=== PATIENT | male | born 1995 | race African-American/Black ===

== ENCOUNTER 2024-07-07 11:45 | Emergency (ER) | payer OTHER, SELFPAY ==
--- NOTE | ~2024-07-07 | CT_ITS ---
EXAMINATION: CT ankle RT wo con DATE: 07/07/2024 13:51 INDICATION: Right ankle injury. TECHNIQUE: Computed tomography (CT) of the right ankle was performed without intravenous contrast. Au tomated exposure control and iterative reconstruction technique were employed. The dose-length produc t was 489.26 mGy-cm. COMPARISON: None FINDINGS: There is normal bone alignment. No fracture. Joint spaces are normal. There is a complete t ear of the Achilles tendon 6 cm proximal to the distal insertion with 3.4 cm gap. IMPRESSION: 1. Complete tear of the Achilles tendon. Reviewed, dictated and finalized at location E.
[2024-07-07 11:47] VITALS: BP 117/72; PULSE 89; RESP 16; TEMP 36.5; O2SAT 97
[2024-07-07 13:55] VITALS: BP 120/81; PULSE 83; RESP 15; TEMP 36.9; O2SAT 100
--- NOTE | 2024-07-07 14:24 | ED.LOWEXIN ---
HPI - Extremity Injury (Lower) General Chief Complaint: Extremity Injury, Lower Stated Complaint: tore my achilles Time Seen by Provider: 07/07/24 14:01 History of Present Illness HPI Narrative: 29-year-old male presents to emergency department with concerns for Achilles tendon injury. Patient states was playing basketball when he was trying to catch a pass and felt a pop the posterior aspect of his right ankle. Denies injury to the remainder of lower extremity. Review of Systems Review of Systems: All systems reviewed & are unremarkable except as noted in HPI and below Exam Narrative: GENERAL: Well-appearing, well-nourished, and in no acute distress. HEAD: Normocephalic, atraumatic. NECK: Supple. CHEST: Clear to auscultation. No respiratory distress. HEART: Regular rate and rhythm. No murmur heard. Normal peripheral pulses. EXTREMITIES: RLE: Tenderness along the Achilles tendon. Obvious deformity palpated along the Achilles tendon. Negative Salas's test. No tenderness remainder lower extremity. DP pulse 2 +. Sensation intact. Limited range of motion of ankle. Compartments are soft SKIN: Warm, dry, no rash. NEURO: No focal deficits. Alert and oriented x3 Course Vital Signs Vital signs: Vital Signs Temperature 97.7 F 07/07/24 11:47 Pulse Rate 89 07/07/24 11:47 Respiratory Rate 16 07/07/24 11:47 Blood Pressure 117/72 07/07/24 11:47 Pulse Oximetry 97 07/07/24 11:47 Temperature 98.4 F 07/07/24 13:55 Pulse Rate 83 07/07/24 13:55 Respiratory Rate 15 07/07/24 13:55 Blood Pressure 120/81 07/07/24 13:55 Pulse Oximetry 100 07/07/24 13:55 MDM - Extremity Injury (Lower) MDM Narrative Medical decision making narrative: 29-year-old male presents to emergency department with concerns for an Achilles tendon injury that occurred prior to arrival play basketball. Triage vitals are stable. Exam is significant for the above. He is neurovascularly intact. Concern for Achilles rupture. CT ankle obtained which shows a complete tear of the Achilles tendon 6 cm proximal to the distal insertion with 3.4 cm gap. Imaging discussed with the patient. He was placed in a short-leg posterior splint with ankle slightly plantar flexed and provided crutches. I offered pain medications, however patient politely declined. Advised Tylenol ibuprofen and close follow-up with orthopedics. Strict ED return precautions provided. He is agreeable to plan verbalized understanding. Discharged in stable condition. Discharge Plan Discharge Clinical Impression: Achilles tendon rupture Qualifiers: Encounter type: initial encounter Laterality: right Qualified Code(s): S86.011A - Strain of right Achilles tendon, initial encounter Patient Disposition: Home, Self-Care Condition: Stable Instructions: Antibiotic Form, Achilles Tendon Rupture (ED) Additional Instructions: your evaluated in the emergency department for ankle pain after an injury while playing basketball. Your exam is concerning for Achilles tendon injury. CT was obtained that shows a full Achilles tendon rupture. Your placed in a splint and provided crutches, please keep the splint on until you follow-up with orthopedics. Please call Dr. Hernandez on Monday for close follow-up. You can take 1000 mg of Tylenol every 6 hours and 800 mg of ibuprofen every 6 hours as needed for pain. Return to the emergency department if you develop a fever, numbness to her foot, cold or numb foot, significantly worsening pain, or other concerning symptoms Follow-up/Referrals: Robert Hernandez MD [Physician] - 1 Day UNKNOWN,DOCTOR [Non-Staff] -
== END 2024-07-07 15:43 | disposition home or self-care (01) ==
PROVIDERS: Emergency Provider Physician Assistant
DX: S86.011A Strain of right Achilles tendon, initial encounter (principal); X50.9XXA Other and unspecified overexertion or strenuous movements or postures, initial encounter; Y93.67 Activity, basketball
CPT/HCPCS: 73700; 99284

== ENCOUNTER 2024-07-11 14:52 | Outpatient (CLI) | payer OTHER, SELFPAY ==
--- NOTE | ~2024-07-11 | MR_ITS ---
EXAMINATION: MR ankle RT wo con DATE: 07/11/2024 15:44 INDICATION: Right Achilles tendon strain or rupture. TECHNIQUE: Magnetic resonance imaging (MRI) of the right ankle was performed without intravenous cont rast. Sequences included sagittal, coronal, and axial proton-density weighted fast spin echo without and with fat saturation. COMPARISON: None. FINDINGS: Medial ankle ligaments: Deep and superficial deltoid ligaments as well as the spring ligament are normal. Lateral ankle ligaments: The anterior and posterior inferior tibiofibular ligaments are normal. The anterior talofibular, calc aneofibular and posterior talofibular ligaments are normal. Tendons: There is severe Achilles tendinosis with full-thickness tear located 6 cm from the calcaneal insertio n and with 3 cm proximal retraction. The plantaris tendon remains intact. The peroneus longus and janak vis tendons are normal. The tibialis anterior and extensor hallucis longus and extensor digitorum piter arben tendons are normal. The tibialis posterior, flexor digitorum longus and flexor hallucis longus te ndons are normal. Plantar fascia: Plantar aponeurosis is normal. Bones/other: Bone alignment is normal. Normal marrow signal throughout no fracture, reactive edema or pathologic m arrow replacing process. Joint spaces are normal. Fluid: Physiologic amount fluid in the joint spaces. Small fluid collection likely hematoma at the Achilles tendon tear defect. There is prominent surrounding subcutaneous edema about the distal calf extending across ankle in the dorsum of the foot. IMPRESSION: 1. Complete tear of the Achilles tendon 6 cm proximal to the calcaneal insertion with 3 cm proximal r etraction. Reviewed, dictated and finalized at location A. IMPRESSION: 1. Complete tear of the Achilles tendon 6 cm proximal to the calcaneal insertio n with 3 cm proximal retraction.
== END 2024-07-11 14:53 ==
LOC: GOSHIMG 14:53
PROVIDERS: PCP Orthopaedic Surgery; Visit Provider Orthopaedic Surgery
DX: S86.011A Strain of right Achilles tendon, initial encounter (principal); X58.XXXA Exposure to other specified factors, initial encounter
CPT/HCPCS: 73721

== ENCOUNTER 2024-07-12 01:40 | Day surgery (SDC) | payer OTHER, SELFPAY ==
--- NOTE | 2024-07-11 10:29 | PC.NURSE ---
Report to the Outpatient Waiting Room, entrance under the green pavilion located off [facility], at time ____10am___ on date ____07/12/24___. Planned Procedure Time: ___12p . Time changes happen often and if your time is changed the preop area will call you the afternoon before. - You and your visitor will be asked to self-screen and do not enter if you have any COVID symptoms. - A mask is optional within the hospital at this time. Patients may have clear liquids (water, carbonated beverages, clear teas, apple juice) until 3 hours prior to surgery with a maximum of 20 ounces. stop at 9am - No food from midnight until time of surgery Take the following medications with a SIP of water the morning of surgery: NA DO NOT STOP ANY OF YOUR OTHER PRESCRIPTION MEDICATIONS PRIOR TO SURGERY ?EXCEPT THE FOLLOWING Medications to discontinue per physician NA Date to take last dose Please no make-up, nail yakut, hairspray, perfume, deodorant, or body powder the day of surgery. No jewelry (including any body piercings) or valuables the day of surgery, leave them at home. Please take a shower or bath the night before, or the morning of, surgery with an antibacterial soap. Wear comfortable, loose fitting clothing. - Jewelry must be removed prior to entering the operating room. Rings and piercings that are not removed may be cut off. - The hospital will not accept responsibility for valuables. - Please leave all valuables, including medications, at home the day of surgery. If you are going home after surgery, a licensed medical van driver must drive you home. - NO public transportation without another adult if you receive anesthesia. - We recommend that an adult stay with you for 24 hours following discharge. - We also recommend that you do not drive, make important decision, drink alcoholic beverages, or take any drugs that were not prescribed by your health care provider for at least 24 hours after your discharge time. Follow any additional instructions given to you from your surgeon. If you or anyone in your household have experienced Covid symptoms in the past week, please notify your surgeon or the nurse liaison at the phone number below for possible testing. Telephone instructions given to __patient __and asked if any additional questions and then verbalized understanding. Patient advised to call surgeon office or pre surgery nurse liaison [phone] if any additional questions.
[2024-07-11 10:37] VITALS: BMI 23.9
[2024-07-12] VITALS (11 sets, daily range): BP systolic 81–129; BP diastolic 44–83; PULSE 62–76; RESP 8–18; TEMP 36.2–36.6; O2SAT 98–100
[2024-07-12] MEDS: LACTATED RINGERS 1,000 ML 30 ML IV CONT ×2 (10:30→14:09)
--- NOTE | 2024-07-12 10:51 | PM.IMHP ---
H&P: HPI History of Present Illness Date/Time: 07/12/24 10:51 Chief Complaint: right Achilles tendon tear Narrative: 29-year-old male who presents today for surgical repair of his right Achilles tendon rupture. He injured it on 07/07. While he was playing basketball he went up for a jump and felt a sudden severe pain in the posterior aspect of the calf. He also felt a pop. He had rather severe pain after this and went to the emergency room. They did a CT scan initially of the right ankle which was suggestive of Achilles tendon rupture. He was seen in the office on 07/08. MRI scan was ordered which showed a complete tear of the a Achilles tendon mid substance. There is about 3.5 cm of gapping. Because of the significant gapping and his young age surgical repair the tendon was recommended. Patient like to proceed and presents today for that. Review of Systems Review of Systems: All systems reviewed & are unremarkable except as noted in HPI and below PMFSH Past Medical History Medical History (Updated 07/09/24 @ 21:07 by Robert Hernandez MD) Collar bone fracture Family History Family History (Updated 07/08/24 @ 11:34 by KELSEY Souza) Father No problems noted. Mother No problems noted. Sibling No problems noted. Social History Social History (Updated 07/08/24 @ 11:35 by KELSEY Souza) Smoking status: Never smoker Second hand tobacco smoke exposure: No Alcohol intake: current Substance use: current Substance use type: does not use Last use: edibles Do You Feel Safe in your Home?: Yes Lack of Transportation: No Lack of Food: Never True Current Housing: I Have Housing Concerned About Future Housing: No Difficulty Paying Gas/Electric Bills: No Difficulty Paying for Meds: No Currently Unemployed: No Education: High School Diploma/GED Difficulty w/ Childcare or Family Care: No Living arrangements: with family Occupation/Education: occupation 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 Gender identity (if verbalized by the patient): Male Spiritual care concerns: No Meds Home Medications and Allergies Home Medications Medication Instructions Recorded Confirmed Type No Home Medications 07/08/24 07/11/24 History Allergies Allergy/AdvReac Type Severity Reaction Status Date / Time No Known Allergies Allergy Verified 07/11/24 11:04 Exam Narrative: 29-year-old male alert pleasant. He has prominence off laxity of the right Achilles tendon. There is a palpable defect in the proximal aspect of the tendon. He has very mild swelling in the ankle itself. Donavon test is positive. He has normal sensation the right foot. 2+ dorsalis pedis pulse. Resp: Auscultation: clear to auscultation bilaterally Cardio: Rate: regular rate Rhythm: regular rhythm Assessment and Plan Assessment and plan (1) Achilles rupture, right: Qualifiers: Encounter type: initial encounter Qualified Code(s): S86.011A - Strain of right Achilles tendon, initial encounter Code(s): S86.011A - Strain of right Achilles tendon, initial encounter Status: Acute Assessment and Plan: 29-year-old male who has an acute right Achilles tendon rupture. There is significant gapping at the rupture. It was not felt that this is reasonable to treat this nonsurgically Due to the significant gap. Surgical repair of the Achilles tendon was offered inpatient would like to proceed. Surgical procedure as well as the risk complications were discussed in detail all questions were answered and we will proceed
[2024-07-12] MEDS: KETOROLAC 15 MG/ML VIAL (*BKC) IV PUSH ×2 (11:00→13:39)
[2024-07-12] MEDS: ACETAMINOPHEN 500 MG TABLET 1000 MG PO (11:00)
--- NOTE | 2024-07-12 11:24 | WPDANESEPPF ---
Anes - Initial Pre Proc Eval Procedure: Operation Date: 07/12/24 12:00 Proposed Procedures p Right Achilles Tendon Repair - Robert Hernandez MD Date/Time: 07/12/24 11:24 Surgeon: Robert Hernandez MD Pre Op Diagnosis: right achilles tendon rupture Patient Data Age: 29 Gender: M Height: 1.83 m Weight: 80 kg Allergies Allergy/AdvReac Type Severity Reaction Status Date / Time No Known Allergies Allergy Verified 07/11/24 11:04 Home Medications Medication Instructions Recorded Confirmed Type No Home Medications 07/08/24 07/11/24 History Patient hx anesthesia problems: none Family hx anesthesia problems: none Results Review: All pre-operative results and documents have been reviewed as part of the pre-operative evaluation. [facility] Past Medical History Medical History Collar bone fracture Family History Family History Father No problems noted. Mother No problems noted. Sibling No problems noted. Social History Social History Smoking status: Never smoker Second hand tobacco smoke exposure: No Alcohol intake: current Substance use: current Substance use type: does not use Last use: edibles Do You Feel Safe in your Home?: Yes Lack of Transportation: No Lack of Food: Never True Current Housing: I Have Housing Concerned About Future Housing: No Difficulty Paying Gas/Electric Bills: No Difficulty Paying for Meds: No Currently Unemployed: No Education: High School Diploma/GED Difficulty w/ Childcare or Family Care: No Living arrangements: with family Occupation/Education: occupation Additional occupation/education comments: [employer]. Gender identity (if verbalized by the patient): Male Spiritual care concerns: No Anes - Eval Final PreProcedure Day of Procedure 07/12/24 11:24 Patient weight: normal Heart: regular rate and rhythm Lungs: clear to auscultation Airway: Mallampati scale class II Neurological: alert and oriented ASA classification: I Emergent: no Anesthetic plan: proceed Anesthesia type and monitoring: general ETT and standard monitoring Results Review: All pre-operative results and documents have been reviewed as part of the pre-operative evaluation. Informed Consent: The patient's anesthetic plan and its attendant risks and benefits were discussed with the patient/family/POA. Questions were solicited and answers provided to the satisfaction of the patient/family/POA.
--- NOTE | 2024-07-12 11:54 | WPDHPUPDATE1 ---
History and Physical Update Update Date/Time: 07/12/24 11:54 History and Physical has been reviewed, including an updated exam of the patient. There are NO changes in the patient's condition. Risks, benefits, and alternatives have been discussed and questions answered. Patient agrees to proceed with procedure.
[2024-07-12] MEDS: ceFAZolin 2 GM/D5W 50 ML 2 GM/50 ML BAG IVPB (12:01)
[2024-07-12] MEDS: ceFAZolin SODIUM 1 GM VIAL (12:03)
[2024-07-12] MEDS: ceFAZolin SODIUM 1 GM VIAL IV PUSH (13:40)
--- NOTE | 2024-07-12 13:50 | P.OP_ITS ---
Procedure Note - Detailed Date of Procedure 07/12/24 Pre-op Diagnosis right achilles tendon rupture Post-op Diagnosis Same Procedure Performed Right Achilles tendon repair using Arthrex percutaneous Achilles tendon repair system Surgeon Robert Hernandez MD [employer]ing Unit Operator Martina Anesthesia General Description of Procedure Patient was brought to the operating room and general anesthesia was administered. He was carefully placed in a prone position with all the appropriate pads. He received 2 g of Ancef preoperatively. The left ankle was examined. With the knee at 90? of flexion the left ankle had about a 20 degree flexion posterior at rest. The right foot and leg was prepped draped usual fashion tourniquet on the thigh. Limb exsanguinated tourniquet elevated to 250 mmHg. A 4 cm longitudinal incision was made over the medial border of the Achilles tendon centered over the tear itself. The paratenon was incised over its medial border. Some organized hematoma was evacuated and the proximal tendon stump identified and the distal tendon stump identified. An Allis clamp was placed on the end of the distal stump. The repaired jig from the Arthrex percutaneous Achilles tendon repair system was then inserted using the deep support spatula to keep the tendon within the arms of the suture guide within the Achilles tendon sheath. When fully seated the straight needle was inserted in the 1. Hole securing the tendon. We then placed the other sutures as designed. The blue and white suture tape in the 2nd hole, the fiber links in the 3rd and 4th hole with loop on either side of the calf the black and white in the 5. However and the needle replaced with the white suture tape the proximal hole. The sutures were then delivered into the incision by pulling out the Jig. The blue and white suture tape was then wrapped around the FiberLink sutures on each side and passed through the loop and on each side the FiberLink suture delivered through the tendon again respectively creating a locking stitch with the blue and white suture tape. The identical process was then repeated on the distal stump of the Achilles tendon which MRI scan showed measured 6 cm. A guide was inserted until it abutted the calcaneal tuberosity and the sutures passed and locking stitch created in the identical fashion as above. Creep was taken out of all the sutures. We had good purchase on both ends the tendon. We then tied the sutures 1st the black and white suture tapes and the blue white suture tapes and finally white suture tapes using minimum of 4 sq knots on each ensuring each knot could not slide. This brought the ends of the Achilles tendon rupture into position where they were touching and compressed slightly. In the knee bent position this resulted in a resting plantar flexion of the ankle about 25?. The tourniquet had been released before we started tie knots at 47 minutes. The wound had been irrigated with Ancef solution before time not sees well. Security of the repair was confirmed. The paratenon was closed with 3-0 Vicryl is a additional subcutaneous inverted Vicryl were placed which gave excellent skin approximation and skin glue was applied. He was placed in a posterior splint with x-rays soft padding on full the fluffy sponges over the incision wi th the ankle in its resting posture of about 25? of plantar flexion. He was transferred postop recovery in good condition. One more g of Ancef given at time of transfer from the operating room. There were no complications. SONIYA Billing Surgery - Charge Forward: Surgery Billing (Repair right Achilles tendon percutaneous)
--- NOTE | 2024-07-12 13:56 | PM.OP ---
Procedure Note - Brief Procedure Note - Brief Date of procedure: 07/12/24 right achilles tendon rupture Procedure performed: Repair right Achilles tendon rupture Surgeon: MAMTA Pennington Findings: 29-year-old male who on our repair of his right Achilles tendon rupture on 07/12. I was involved in the procedure including positioning the patient on the OR table in 1st assisting through the time surgery. Total time spent was 2 1/2 hours
--- NOTE | 2024-07-12 16:48 | SUR.PHASEII ---
Vitals are stable. Patient is unhooked from monitors and waiting for ride.
== END 2024-07-12 17:10 | disposition home or self-care (01) ==
PROVIDERS: Visit Provider Orthopaedic Surgery
PROC: (CPT 27650; principal; 2024-07-12 12:00)
DX: S86.011A Strain of right Achilles tendon, initial encounter (principal); T14.90XA Injury, unspecified, initial encounter
CPT/HCPCS: 27650; A9270; C1713; J0690; J1100; J1170; J1885; J2250; J2405; J2704; J3010; J7120